=== PATIENT | female | born 1985 | race Caucasian/White ===

== ENCOUNTER 2018-05-05 23:31 | Emergency (ER) | payer MEDICAID ==
[~2018-05-05] VITALS: Ht 165.1 cm; Wt 128.0 kg
[2018-05-06] MEDS ORDERED: KETOROLAC 30MG/ML VIAL IV STA (00:58)
[2018-05-06 01:27] LABS: BASOPHILS % 0.3 % (0.0-2.0); EOSINOPHILS % 0.3 % (0.0-5.0); HEMATOCRIT. 36.6 % (36.0-48.0); HEMOGLOBIN. 12.3 g/dL (12.0-16.0); LYMPHOCYTES % 11.2 % (20.0-50.0); MEAN CORPUSCULAR HEMOGLOBIN 28.1 pg (28.0-32.0); MEAN CORPUSCULAR VOLUME 83.7 fL (81.0-99.0); MEAN PLATELET VOLUME 6.9 fl (7.4-10.4); MONOCYTES % 4.9 % (2.0-8.0); NEUTROPHILS % 83.3 % (40.0-76.0); PLATELET 437 x1000/uL (130-400); RED BLOOD CELL COUNT 4.38 mill/uL (4.2-5.4); RED CELL DISTRIBUTION WIDTH 13.8 % (11.6-14.6)
[2018-05-06 01:34] LABS: CHLORIDE 106 mEq/L (98-107)
[2018-05-06 01:36] LABS: PROTHROMBIN TIME 10.2 sec (9.4-11.6)
[2018-05-06 02:17] LABS: CLARITY URINE CLOUDY (CLEAR); COLOR URINE DARK YELLOW (YELLOW); KETONES URINE 2+ (NEGATIVE); LEUKOCYTE ESTERASE URINE 1+ (NEGATIVE); NITRITE URINE NEGATIVE (NEGATIVE); OCCULT BLOOD URINE 3+ (NEGATIVE); PROTEIN URINE 2+ (NEGATIVE); SPECIFIC GRAVITY URINE 1.028 (1.005-1.030)
[2018-05-06] MEDS ORDERED: CEFTRIAXONE 1 G PREMIX 50 ML IV NR (03:30)
[2018-05-06 04:39] VITALS: BP 126/75
== END 2018-05-06 04:45 | disposition home or self-care (01) ==
LOC: ER 23:31
DX: N39.0 Urinary tract infection, site not specified (principal); R10.11 Right upper quadrant pain
CPT/HCPCS: 36415; 80053; 81003; 83690; 85025; 85610; 96365; 96375; 99284; J0696; J1885; Z7610

== ENCOUNTER 2018-06-08 22:23 | Emergency (ER) | payer MEDICAID ==
[~2018-06-08] VITALS: Ht 167.6 cm; Wt 131.0 kg
[2018-06-08 23:05] VITALS: BP 166/85
[2018-06-09 00:35] LABS: CHLORIDE 107 mEq/L (98-107)
[2018-06-09 00:37] LABS: D-DIMER 0.47 mg/L FEU (<0.50); INR 0.9; PROTHROMBIN TIME 9.4 sec (9.1-11.1)
[2018-06-09 01:08] LABS: BASOPHILS % 0.5 % (0.0-2.0); EOSINOPHILS % 3.3 % (0.0-5.0); HEMATOCRIT. 35.8 % (36.0-48.0); HEMOGLOBIN. 11.8 g/dL (12.0-16.0); LYMPHOCYTES % 21.2 % (20.0-50.0); MEAN CORPUSCULAR HEMOGLOBIN 27.5 pg (28.0-32.0); MEAN PLATELET VOLUME 7.2 fl (7.4-10.4); MONOCYTES % 7.4 % (2.0-8.0); NEUTROPHILS % 67.6 % (40.0-76.0); PLATELET 447 x1000/uL (130-400); RED BLOOD CELL COUNT 4.31 mill/uL (4.2-5.4); RED CELL DISTRIBUTION WIDTH 14.4 % (11.6-14.6)
== END 2018-06-09 02:16 | disposition home or self-care (01) ==
LOC: ER 22:23
DX: R06.00 Dyspnea, unspecified (principal); R07.89 Other chest pain; F41.9 Anxiety disorder, unspecified; Z98.890 Other specified postprocedural states
CPT/HCPCS: 36415; 71045; 80053; 81025; 84484; 85025; 85379; 85610; 93005; 99285